=== PATIENT | female | born 1955 | race Caucasian/White ===

== ENCOUNTER 2016-11-20 13:06 | Inpatient (IN) | payer OTHER, MEDICARE ==
--- NOTE | ~2016-11-20 | CN ---
Consultation Report [facility] [address] [place]. [address] NAME: NUHA MORENO : 57 STATUS : ADM IN PAT#: [id number] AGE: 61 ADM/REG DATE : 11/20/16 MR#: [id number] REPORT SERV DATE: 11/23/16 DICTATED BY: CONSUELO BOWLES DATE: 11/21/16 REPORT STATUS : Draft TRANSCRIBED BY: GINGER DATE: 11/21/16 INPATIENT CONSULTATION DATE OF CONSULTATION: 11/21/2016 HISTORY OF PRESENT ILLNESS: Nuha Moreno is a 61-year-old well known to the office of [place] INFRASTRUCTURE TECHNICIAN/Oncology with a five years history of surgical stage IIIC (T3b, N1, M0), poorly differentiated endometrioid adenocarcinoma. She has a history of breast cancer and she is BRCA1 positive. She has known upper abdominal recurrent disease and was treated with a biliary stent approximately one year ago for increasing liver functions and bilirubin. She has done quite well with that. She presented to the [facility] Emergency Department with a complaint of coke-colored urine, mihaela-colored stools, and without other complaints suspicious for advanced disease. She has no bloating, fullness, early satiety, nausea, vomiting, bladder, or bowel changes. She was last evaluated in the office on 09/17/2016 for her CA-125 was 7.0, and she was without evidence of recurrent disease. PHYSICAL EXAMINATION: ABDOMEN: Her physical examination is noteworthy for mild jaundice. Her abdomen is soft, nontender. She has normoactive bowel sounds. There is no hepatosplenomegaly. No ascites, masses, or hernias. INFRASTRUCTURE TECHNICIAN: Deferred. ASSESSMENT: My assessment is that she either has obstructed or clogged stent versus progression of disease with increased stent compression. RECOMMENDATION: GI consultation has already been accomplished for possible stent replacement. If stent is simply clogged and her CA-125 is negative, we will continue to observe and hold additional therapy for recurrent disease. However, if she has progressive disease based on stent compression and/or increasing CA-125, she is an excellent candidate for a PARP inhibitor (rucaparib 600 mg p.o. b.i.d.) This has been discussed at length with Nuha and her Gasper. They understand this and are comfortable with this recommendation. SOREN/MODL Consuelo Bowles M.D. / [id number] CC: Briseida Real
--- NOTE | ~2016-11-20 | EGD ---
EGD REPORT [facility] [address] [address] NAME: NUHA MORENO : 57 STATUS : ADM IN PAT#: [id number] AGE: 61 ADM/REG DATE : 11/20/16 MR#: [id number] REPORT SERV DATE: 11/23/16 DICTATED BY: CINDY FLOWERS DATE: 11/23/16 REPORT STATUS : Draft TRANSCRIBED BY: [facility] DATE: 11/23/16 Endoscopy Center Patient Name: Nuha Moreno Date of : 1955 Attending MD: CINDY FLOWERS, Procedure Date No Time: 11/23/2016 Procedure: ERCP Indications: Elevated aspartate transaminase (AST), Elevated alanine transaminase (ALT), Elevated bilirubin Referring MD: CONSUELO Austin Medicines: General Anesthesia Complications: No immediate complications. Estimated blood loss: None Procedure: Pre-Anesthesia Assessment: - ASA Grade Assessment: IV - A patient with severe systemic disease that is a constant threat to life. After obtaining informed consent, the scope was passed under direct vision. Throughout the procedure, the patient's blood pressure, pulse, and oxygen saturations were monitored continuously. The Duodenoscope was introduced through the mouth, and advanced to the duodenum and used for direct visualization of the bile duct. The ERCP was accomplished without difficulty. The patient tolerated the procedure well. Findings: One stent originating in the biliary tree was emerging from the major papilla. The stent was migrated distally and touching the opposite wall. One stent was removed from the biliary tree using a rat-toothed forceps. The was a gaping orifice. The bile duct was cannulated with the 12 mm balloon. Contrast was injected. I personally interpreted the bile duct images. The lower third of the main bile duct was completely obstructed. The duct only filled about 1 cm. No contrast passed proximally and despite multiple attempts the duct could not be canluted with a wire using either the balloon or the sphincterotome. Impression: - One migrated distally and touching the opposite wall. stent from the biliary tree was seen in the major papilla. - One stent was removed from the biliary tree. - A biliary tract obstruction was found in the lower third of the main duct. Recommendation: - PTC tomorrow. - Return to previous diet. - Continue present medications. EGD REPORT [address] [address] NAME: NUHA MORENO : 57 STATUS : ADM IN [facility]#: [id number] AGE: 61 ADM/REG DATE : 11/20/16 MR#: [id number] REPORT SERV DATE: 11/23/16 DICTATED BY: CINDY FLOWERS DATE: 11/23/16 REPORT STATUS : Draft TRANSCRIBED BY: [employer] DATE: 11/23/16 Procedure Code(s): --- Professional --- 86564, Endoscopic retrograde cholangiopancreatography (ERCP); with removal of foreign body(s) or stent(s) from biliary/pancreatic duct(s) Diagnosis Code(s): --- Professional --- Z96.89, Presence of other specified functional implants Z46.59, Encounter for fitting and adjustment of other gastrointestinal appliance and device K83.1, Obstruction of bile duct R74.0, Nonspecific elevation of levels of transaminase and lactic acid dehydrogenase [LDH] E80.7, Disorder of bilirubin metabolism, unspecified CPT copyright 2013 [employer]. All rights reserved. The codes documented in this report are preliminary and upon lapel padder review may be revised to meet current compliance requirements. CINDY FLOWERS, 11/23/2016 12:45 PM Number of Addenda: 0 Note Initiated On: 11/23/2016 11:52 AM Scope Withdrawal Time 0 hours 0 minutes 0 seconds [id number] [place] [address]
--- NOTE | ~2016-11-20 | DS ---
Discharge Summary [facility] [address] [place]. [address] NAME: KAUR NICK : 57 STATUS : DIS IN PAT#: [id number] AGE: 61 ADM/REG DATE : 11/20/16 MR#: [id number] REPORT SERV DATE: 01/11/17 DICTATED BY: NORI HERNANDEZ II DATE: 01/10/17 REPORT STATUS : Draft TRANSCRIBED BY: MODL DATE: 01/10/17 ADMISSION DATE: 11/20/2016 DISCHARGE DATE: 11/26/2016 DISCHARGE DIAGNOSES: 1. Elevated liver function tests secondary to bile duct obstruction. 2. Metastatic adenocarcinoma. 3. Chronic kidney disease, stage 3. 4. Anemia. CONSULTS: 1. Dr. Holloway with GI. 2. Dr. Dominique with GI. 3. Dr. Camupzano with [facility]. PROCEDURES: ERCP and PCT with internal/external biliary drain placement. BRIEF HISTORY OF PRESENT ILLNESS: The patient is a 61-year-old female with a history of metastatic adenocarcinoma on BRCA-1, who presented to [facility] due to recurrent biliary obstruction. For details of history and physical examination, please see Dr. Villeda's note from 11/20/2016. HOSPITAL COURSE: On admission, the patient had a CT scan, which was actually fairly unremarkable. Her T-bili on admission was 6.6 with mildly elevated LFTs, ALT 135, and AST 166. She was initially started on Zosyn, there was a concern for possible cholangitis, and Dr. Dominique was consulted who recommended ERCP. Dr. Holloway performed the ERCP and found the prior biliary stent was protruding from the ampulla and abutting the adjacent wall of the duodenum causing functional obstruction. The stent was removed. The patient subsequently underwent PTC biliary drain with internal and external drain placement. Subsequently, her T bili began to trend down, and at time of discharge was 2.5 and had noted normalization of her liver enzymes. Her pain was also improved, and she was able to be discharged. DISCHARGE MEDICATIONS: 1. Tylenol 500 mg p.o. q.6 hours p.r.n. 2. Benadryl p.r.n. 3. Flonase p.r.n. 4. Neurontin 100 mg p.o. daily. 5. Neurontin 200 mg p.o. at bedtime. 6. Hydrochlorothiazide 12.5 mg p.o. daily. 7. Atarax 25 mg p.o. daily p.r.n. itching. 8. Synthroid 125 mcg p.o. daily. 9. Toprol-XL 25 mg p.o. daily. 10.Prilosec 20 mg p.o. daily. 11.Percocet 5/325 mg p.o. daily p.r.n. pain. 12.Requip 1 mg p.o. daily. 13.Requip 2 mg p.o. at bedtime. Discharge Summary [place] [address] [place]. [address] NAME: KAUR NICK : 57 STATUS : DIS IN PAT#: [id number] AGE: 61 ADM/REG DATE : 11/20/16 MR#: [id number] REPORT SERV DATE: 01/11/17 DICTATED BY: NORI HERNANDEZ II DATE: 01/10/17 REPORT STATUS : Draft TRANSCRIBED BY: GINGER DATE: 01/10/17 14.Zoloft 100 mg p.o. at bedtime. 15.Aldactone 50 mg p.o. daily. 16.Vitamin E 400 units p.o. daily. DISCHARGE INSTRUCTIONS: The patient will follow with Dr. Frank in two to three weeks. SHERINE/GINGER Nori Hernandez II, MD / [id number] CC: MD DENNISE Pleitez II
--- NOTE | ~2016-11-20 | CN ---
Consultation Report [address] [place]. [address] NAME: KAUR NICK : 57 STATUS : ADM IN [facility]#: [id number] AGE: 61 ADM/REG DATE : 11/20/16 MR#: [id number] REPORT SERV DATE: 11/21/16 DICTATED BY: FADY DOMINIQUE DATE: 11/21/16 REPORT STATUS : Draft TRANSCRIBED BY: MODL DATE: 11/21/16 GI CONSULT DATE OF CONSULTATION: 11/21/2016 Regarding elevated liver tests. HISTORY OF PRESENT ILLNESS: This is a 61-year-old woman with a history of metastatic adenocarcinoma and BRCA1, now presenting with epigastric pain, mihaela colored stools and dark urine. She has been feeling ill for the past few days and did measure her temperature up to 102 Fahrenheit. She has had intermittent epigastric pain for the past one year, which has been worse recently. Stools have been normal, although mihaela colored. She has had dark urine as stated above. She has had no vomiting, GERD, or dysphagia. She had covered metal stent placed in her common bile duct in 10/[address] Holloway. This was thought to be the etiology of her obstruction was thought to be metastatic ovarian cancer. MEDICAL HISTORY: 1. Remarkable for breast cancer 2004, status post surgery including bilateral mastectomy, radiation and chemotherapy. 2. Ovarian cancer, status post surgery and chemotherapy. 3. BRCA1 mutation. 4. Peripancreatic lymph nodes, biopsied and found to be adenocarcinoma. 5. Common bile duct covered metal stent placement, Dr. Holloway, 2016. 6. Neuropathy. 7. Bilateral ureteral stents. 8. Urothelial dysplasia and carcinoma. 9. GERD. 10.Hypothyroidism, hypertension, pancreatitis. 11.Ovarian surgery for cancer as well as hysterectomy, bilateral mastectomy, and multiple orthopedic procedures. ALLERGIES: ADHESIVE TAPE. MEDICATIONS: Tylenol, Benadryl, Flonase, Neurontin, hydrochlorothiazide, Atarax, Advil, Synthroid, Toprol, Aleve, Prilosec, Percocet, Requip, Zoloft, Aldactone, vitamin E. FAMILY HISTORY: Positive for breast cancer. SOCIAL HISTORY: She does not use alcohol or tobacco significantly. REVIEW OF SYSTEMS: A complete review of systems was obtained and negative except that noted in the history of present illness. Consultation Report [address] [place]. [address] NAME: KAUR NICK : 57 STATUS : ADM IN [facility]#: [id number] AGE: 61 ADM/REG DATE : 11/20/16 MR#: [id number] REPORT SERV DATE: 11/21/16 DICTATED BY: FADY DOMINIQUE DATE: 11/21/16 REPORT STATUS : Draft TRANSCRIBED BY: MODL DATE: 11/21/16 PHYSICAL EXAMINATION: VITAL SIGNS: She is currently afebrile. Temperature is 97.5, pulse 69, respirations 16, blood pressure 105/61. HEENT: Sclerae are icteric. NECK: Supple without lymphadenopathy. Pharynx is pink without exudate. LUNGS: Clear to auscultation bilaterally. HEART: Regular rate and rhythm. S1, S2 are heard without rubs or gallops. ABDOMEN: Normal bowel sounds. Belly is soft and nondistended. There is mild epigastric tenderness without rebound or guarding. No hepatosplenomegaly is detected. EXTREMITIES: No pedal edema or rash. NEUROLOGIC: Alert and oriented without focal deficit. Muscle exam is nontender. LABORATORY DATA: WBC 7.0, hematocrit 32, platelets 157, MCV 87.7. INR 1.3. Procalcitonin high at 4.85. BUN is 28, creatinine 1.55. Bilirubin 4.8 down from 6.6, alkaline phosphatase 239 down from 264, ALT 85 down from 135, AST 35 down from 66, amylase and lipase normal. CT reviewed is negative except for biliary stent noted. IMPRESSION: 1. Biliary obstructions, suspect cholangitis. 2. History of malignancy, as above. 3. Common bile duct covered metal stent placed in 2016, question obstruction. RECOMMENDATIONS: 1. Continue broad-spectrum antibiotics. 2. Follow liver panel and plan for ERCP to follow with Dr. Holloway. CC/JHONATANL Fady Dominique M.D. / [id number] CC: MD Chelle Trimble Susan Gaile Gregory Olds, MD
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
[~2016-11-20 13:06] MED LIST: ADVIL PO; AMOXIL500 MG PO; COMP10B PO; DEX4 PO; DSS PO; HCTZ12.5 PO; HYDROCHLOROT12.5 MG PO; LEVOTHYROXIN100 MCG PO; LEVOTHYROXIN88 MCG PO; LIQUID TEARS OPH; LORTAB; LORTAB10 PO; NEUR100 PO; NORCO1 TA1 PO; PRILO PO; PRILOSEC40 MG PO; REQUIP1 PO; REQUIP2 PO; SPIRO50 PO; TEARS NATURA OPH; TOPXL25 PO; VIST50 PO; VITE PO; ZOL50 PO; [UNRECOGNIZED DRUG - OTHER]
[2016-11-20 13:46] LABS: BASOPHILS 0.1 %; BASOPHILS ABSOLUTE 0.01 10/3/uL (0.0-0.16); EOSINOPHILS 0.8 %; EOSINOPHILS ABSOLUTE 0.08 10/3/uL (0.0-0.53); IMMATURE GRANULOCYTES 0.2 %; MEAN CORPUSCULAR HEMOGLOB 29.7 pg (26.0-34.0); MEAN CORPUSCULAR VOLUME 87.3 fL (80-100); MEAN PLATELET VOLUME 9.9 fL (9.2-13.0); MONOCYTES 7.3 %; MONOCYTES ABSOLUTE 0.73 10/3/uL (0.21-1.20); NEUTROPHILS 79.6 %; NEUTROPHILS ABSOLUTE 7.94 10/3/uL (2.02-8.40); RED CELL COUNT 4.01 10/6/uL (4.0-5.6)
[2016-11-20 13:47] LABS: HEMOGLOBIN 11.9 g/dL (12.0-16.0); IMMATURE GRANULOCYTES ABSOLUTE 0.02 10/3/uL (0.0-0.11); MANUAL DIFF NO %; PLATELET COUNT 169 10/3/uL (150-400)
[2016-11-20 14:02] LABS: CALCIUM, SERUM 8.7 MG/DL (8.5-10.4); CHLORIDE, SERUM 99 MMOL/L (96-112); CO2 (CARBON DIOXIDE) 26 MMOL/L (24-34); GLUCOSE, SERUM 112 MG/DL (60-99); POTASSIUM, SERUM 3.6 MMOL/L (3.5-5.3); SGOT(AST) 66 U/L (5-40); SGPT(ALT) 135 U/L (5-65); SODIUM, SERUM 136 MMOL/L (135-148); TOTAL PROTEIN 7.1 G/DL (6.0-8.5)
[2016-11-20 14:03] LABS: A/G RATIO 0.7 (0.7-1.9); ALKALINE PHOSPHATASE 264 U/L (45-117); BUN (BLOOD UREA NITROGEN) 35 MG/DL (6-23); CREATININE 1.86 MG/DL (0.55-1.02); GFR AFRICAN AMERICAN 33 ML/MIN (>=60); GFR NON AFRICAN AMERICAN 29 ML/MIN (>=60); GLOBULIN 4.1 G/DL (2.5-4.1); TOTAL BILIRUBIN 6.6 MG/DL (0-1.2)
[2016-11-20 14:07] LABS: ASCORBIC ACID (UR NOT ORDER) NEG (NEG); BAND NEUTROPHILS 8 %; BILIRUBIN, URINE SMALL (NEG); ER DIFF TAT 0 Hrs 27 Mins; ER URINALYSIS TAT 0 Hrs 27 Mins; KETONE, URINE NEGATIVE (NEG); LEUKOCYTE ESTERASE(NOT OR LARGE (NEG); LYMPHOCYTES 11 %; MONOCYTES 8 %; NITRITE (URINE) NEG (NEG); PLATELET ESTIMATE ADQ (ADEQUATE); RBC MORPHOLOGY NORM (NORMAL); SEGMENTED NEUTROPHIL (0) 73 %; TOTAL NUCLEATED CELLS 100; WBC (NOT ORDERED) (RFLEX) 16 (0-5)
[2016-11-20] MEDS ORDERED: SYN125 PO (17:58)
[2016-11-20] MEDS ORDERED: REQUIP2 PO (17:59)
[2016-11-20] MEDS ORDERED: REQUIP1 PO (17:59)
[2016-11-20] MEDS ORDERED: ZOL50 PO (17:59)
[2016-11-20] MEDS ORDERED: HYDROCHLOROT12.5 MG PO (17:59)
[2016-11-20 18:00] LABS: TROPONIN I <0.02 NG/ML (<0.05)
[2016-11-20] MEDS ORDERED: NEUR100 PO ×2 (18:00)
[2016-11-20] MEDS ORDERED: FLONASE NAS (18:00)
[2016-11-20] MEDS ORDERED: ADVIL PO (18:00)
[2016-11-20] MEDS ORDERED: SPIRO50 PO (18:01)
[2016-11-20] MEDS ORDERED: PRILOSEC OTC20 MG PO (18:01)
[2016-11-20] MEDS ORDERED: VITE PO (18:01)
[2016-11-20] MEDS ORDERED: TOPXL25 PO (18:01)
[2016-11-20] MEDS ORDERED: AT25 PO (18:02)
[2016-11-20] MEDS ORDERED: BEN25 PO (18:02)
[2016-11-20] MEDS ORDERED: ALEVE220 MG PO (18:02)
[2016-11-20] MEDS ORDERED: ACET500CAP PO (18:02)
[2016-11-20] MEDS ORDERED: PCET PO (18:03)
[2016-11-21 07:34] LABS: INTERNATIONAL NORMAL RATI 1.3 UNITS (-); PARTIAL THROMBO TIME 36.9 SEC (22.5-37.2)
[2016-11-21 07:41] LABS: BASOPHILS 0.1 %; BASOPHILS ABSOLUTE 0.01 10/3/uL (0.0-0.16); EOSINOPHILS 3.3 %; EOSINOPHILS ABSOLUTE 0.23 10/3/uL (0.0-0.53); HEMOGLOBIN 10.8 g/dL (12.0-16.0); IMMATURE GRANULOCYTES 0.4 %; IMMATURE GRANULOCYTES ABSOLUTE 0.03 10/3/uL (0.0-0.11); LYMPHOCYTES 19.2 %; LYMPHOCYTES ABSOLUTE 1.35 10/3/uL (0.67-4.30); MEAN CORPUS HGB CONC 33.8 g/dL (32.0-36.0); MEAN CORPUSCULAR HEMOGLOB 29.6 pg (26.0-34.0); MEAN CORPUSCULAR VOLUME 87.7 fL (80-100); MEAN PLATELET VOLUME 10.2 fL (9.2-13.0); MONOCYTES 9.4 %; MONOCYTES ABSOLUTE 0.66 10/3/uL (0.21-1.20); NEUTROPHILS 67.6 %; NEUTROPHILS ABSOLUTE 4.74 10/3/uL (2.02-8.40); PLATELET COUNT 157 10/3/uL (150-400); PROTIME (NOT ORD) 16.3 SEC (12.0-14.5); RBC DISTRIBUTION WIDTH 14.3 % (12.0-16.0); RED CELL COUNT 3.65 10/6/uL (4.0-5.6)
[2016-11-21 07:43] LABS: MANUAL DIFF NO %
[2016-11-21 07:53] LABS: CALCIUM, SERUM 8.7 MG/DL (8.5-10.4); CHLORIDE, SERUM 108 MMOL/L (96-112); CO2 (CARBON DIOXIDE) 23 MMOL/L (24-34); CREATININE 1.55 MG/DL (0.55-1.02); GFR AFRICAN AMERICAN 42 ML/MIN (>=60); GFR NON AFRICAN AMERICAN 36 ML/MIN (>=60); GLUCOSE, SERUM 90 MG/DL (60-99); POTASSIUM, SERUM 3.7 MMOL/L (3.5-5.3); SGOT(AST) 35 U/L (5-40); SGPT(ALT) 85 U/L (5-65); SODIUM, SERUM 142 MMOL/L (135-148); TOTAL PROTEIN 6.2 G/DL (6.0-8.5); ULTRASENSITIVE TSH 0.505 MCIU/ML (0.358-3.740)
[2016-11-21 07:55] LABS: A/G RATIO 0.6 (0.7-1.9); ALBUMIN 2.3 G/DL (3.5-5.0); ALKALINE PHOSPHATASE 239 U/L (45-117); BUN (BLOOD UREA NITROGEN) 28 MG/DL (6-23); GLOBULIN 3.9 G/DL (2.5-4.1); TOTAL BILIRUBIN 4.8 MG/DL (0-1.2)
[2016-11-21 08:11] LABS: PROCALCITONIN 4.85 ng/mL (<0.5)
[2016-11-22 06:28] LABS: BASOPHILS 0.4 %; BASOPHILS ABSOLUTE 0.02 10/3/uL (0.0-0.16); EOSINOPHILS 4.7 %; EOSINOPHILS ABSOLUTE 0.22 10/3/uL (0.0-0.53); HEMATOCRIT 29.6 % (36.0-48.0); HEMOGLOBIN 9.7 g/dL (12.0-16.0); LYMPHOCYTES 28.1 %; LYMPHOCYTES ABSOLUTE 1.32 10/3/uL (0.67-4.30); MEAN CORPUS HGB CONC 32.8 g/dL (32.0-36.0); MEAN CORPUSCULAR HEMOGLOB 29.4 pg (26.0-34.0); MEAN CORPUSCULAR VOLUME 89.7 fL (80-100); MEAN PLATELET VOLUME 10.6 fL (9.2-13.0); MONOCYTES 8.9 %; MONOCYTES ABSOLUTE 0.42 10/3/uL (0.21-1.20); NEUTROPHILS 57.9 %; NEUTROPHILS ABSOLUTE 2.72 10/3/uL (2.02-8.40); PLATELET COUNT 152 10/3/uL (150-400); RBC DISTRIBUTION WIDTH 14.8 % (12.0-16.0); WHITE BLOOD CELLS 4.7 10/3/uL (4.5-10.5)
[2016-11-22 06:30] LABS: MANUAL DIFF NO %
[2016-11-22 06:39] LABS: A/G RATIO 0.6 (0.7-1.9); ALBUMIN 2.1 G/DL (3.5-5.0); ALKALINE PHOSPHATASE 299 U/L (45-117); BUN (BLOOD UREA NITROGEN) 24 MG/DL (6-23); CALCIUM, SERUM 8.4 MG/DL (8.5-10.4); CHLORIDE, SERUM 110 MMOL/L (96-112); CO2 (CARBON DIOXIDE) 24 MMOL/L (24-34); CREATININE 1.58 MG/DL (0.55-1.02); GFR AFRICAN AMERICAN 41 ML/MIN (>=60); GFR NON AFRICAN AMERICAN 35 ML/MIN (>=60); GLOBULIN 3.7 G/DL (2.5-4.1); GLUCOSE, SERUM 111 MG/DL (60-99); POTASSIUM, SERUM 3.7 MMOL/L (3.5-5.3); SGOT(AST) 30 U/L (5-40); SGPT(ALT) 69 U/L (5-65); SODIUM, SERUM 145 MMOL/L (135-148); TOTAL BILIRUBIN 2.4 MG/DL (0-1.2); TOTAL PROTEIN 5.8 G/DL (6.0-8.5)
[2016-11-23 08:19] LABS: BASOPHILS 0.6 %; BASOPHILS ABSOLUTE 0.03 10/3/uL (0.0-0.16); EOSINOPHILS 4.1 %; HEMATOCRIT 32.1 % (36.0-48.0); HEMOGLOBIN 10.7 g/dL (12.0-16.0); IMMATURE GRANULOCYTES 0.2 %; IMMATURE GRANULOCYTES ABSOLUTE 0.01 10/3/uL (0.0-0.11); LYMPHOCYTES 36.3 %; LYMPHOCYTES ABSOLUTE 1.75 10/3/uL (0.67-4.30); MEAN CORPUS HGB CONC 33.3 g/dL (32.0-36.0); MEAN CORPUSCULAR HEMOGLOB 29.9 pg (26.0-34.0); MEAN CORPUSCULAR VOLUME 89.7 fL (80-100); MEAN PLATELET VOLUME 10.2 fL (9.2-13.0); MONOCYTES 8.5 %; MONOCYTES ABSOLUTE 0.41 10/3/uL (0.21-1.20); NEUTROPHILS 50.3 %; NEUTROPHILS ABSOLUTE 2.42 10/3/uL (2.02-8.40); PLATELET COUNT 164 10/3/uL (150-400); RBC DISTRIBUTION WIDTH 14.8 % (12.0-16.0); RED CELL COUNT 3.58 10/6/uL (4.0-5.6); WHITE BLOOD CELLS 4.8 10/3/uL (4.5-10.5)
[2016-11-23 08:21] LABS: MANUAL DIFF NO %
[2016-11-23 08:40] LABS: A/G RATIO 0.5 (0.7-1.9); ALBUMIN 2.2 G/DL (3.5-5.0); BUN (BLOOD UREA NITROGEN) 26 MG/DL (6-23); CALCIUM, SERUM 8.8 MG/DL (8.5-10.4); CHLORIDE, SERUM 110 MMOL/L (96-112); CO2 (CARBON DIOXIDE) 22 MMOL/L (24-34); GFR AFRICAN AMERICAN 40 ML/MIN (>=60); GFR NON AFRICAN AMERICAN 35 ML/MIN (>=60); GLOBULIN 4.1 G/DL (2.5-4.1); SGOT(AST) 37 U/L (5-40); SGPT(ALT) 67 U/L (5-65); SODIUM, SERUM 144 MMOL/L (135-148); TOTAL BILIRUBIN 2.2 MG/DL (0-1.2); TOTAL PROTEIN 6.3 G/DL (6.0-8.5)
[2016-11-23 08:42] LABS: ALKALINE PHOSPHATASE 379 U/L (45-117); GLUCOSE, SERUM 87 MG/DL (60-99)
[2016-11-24 06:11] LABS: BASOPHILS 0.3 %; BASOPHILS ABSOLUTE 0.02 10/3/uL (0.0-0.16); EOSINOPHILS 2.8 %; EOSINOPHILS ABSOLUTE 0.19 10/3/uL (0.0-0.53); HEMATOCRIT 30.8 % (36.0-48.0); HEMOGLOBIN 10.3 g/dL (12.0-16.0); IMMATURE GRANULOCYTES 0.3 %; IMMATURE GRANULOCYTES ABSOLUTE 0.02 10/3/uL (0.0-0.11); LYMPHOCYTES ABSOLUTE 1.83 10/3/uL (0.67-4.30); MEAN CORPUS HGB CONC 33.4 g/dL (32.0-36.0); MEAN CORPUSCULAR HEMOGLOB 29.7 pg (26.0-34.0); MEAN CORPUSCULAR VOLUME 88.8 fL (80-100); MEAN PLATELET VOLUME 10.4 fL (9.2-13.0); MONOCYTES 6.5 %; MONOCYTES ABSOLUTE 0.44 10/3/uL (0.21-1.20); NEUTROPHILS 63.1 %; NEUTROPHILS ABSOLUTE 4.27 10/3/uL (2.02-8.40); PLATELET COUNT 191 10/3/uL (150-400); RED CELL COUNT 3.47 10/6/uL (4.0-5.6)
[2016-11-24 06:12] LABS: MANUAL DIFF NO %; WHITE BLOOD CELLS 6.8 10/3/uL (4.5-10.5)
[2016-11-24 06:16] LABS: PARTIAL THROMBO TIME 31.5 SEC (22.5-37.2); PROTIME (NOT ORD) 13.5 SEC (12.0-14.5)
[2016-11-24 06:24] LABS: BUN (BLOOD UREA NITROGEN) 24 MG/DL (6-23); CALCIUM, SERUM 8.9 MG/DL (8.5-10.4); CHLORIDE, SERUM 107 MMOL/L (96-112); CO2 (CARBON DIOXIDE) 25 MMOL/L (24-34); CREATININE 1.63 MG/DL (0.55-1.02); GFR AFRICAN AMERICAN 39 ML/MIN (>=60); GFR NON AFRICAN AMERICAN 34 ML/MIN (>=60); GLUCOSE, SERUM 87 MG/DL (60-99); POTASSIUM, SERUM 4.1 MMOL/L (3.5-5.3); SODIUM, SERUM 141 MMOL/L (135-148)
[2016-11-25 05:48] LABS: BASOPHILS 0.4 %; BASOPHILS ABSOLUTE 0.03 10/3/uL (0.0-0.16); EOSINOPHILS 3.2 %; EOSINOPHILS ABSOLUTE 0.25 10/3/uL (0.0-0.53); HEMATOCRIT 31.5 % (36.0-48.0); HEMOGLOBIN 10.1 g/dL (12.0-16.0); IMMATURE GRANULOCYTES 0.5 %; IMMATURE GRANULOCYTES ABSOLUTE 0.04 10/3/uL (0.0-0.11); LYMPHOCYTES 23.3 %; LYMPHOCYTES ABSOLUTE 1.83 10/3/uL (0.67-4.30); MANUAL DIFF NO %; MEAN CORPUS HGB CONC 32.1 g/dL (32.0-36.0); MEAN CORPUSCULAR HEMOGLOB 28.9 pg (26.0-34.0); MEAN CORPUSCULAR VOLUME 90.3 fL (80-100); MEAN PLATELET VOLUME 10.5 fL (9.2-13.0); MONOCYTES 5.2 %; MONOCYTES ABSOLUTE 0.41 10/3/uL (0.21-1.20); NEUTROPHILS 67.4 %; PLATELET COUNT 214 10/3/uL (150-400); RED CELL COUNT 3.49 10/6/uL (4.0-5.6); WHITE BLOOD CELLS 7.9 10/3/uL (4.5-10.5)
[2016-11-25 06:03] LABS: A/G RATIO 0.6 (0.7-1.9); ALBUMIN 2.5 G/DL (3.5-5.0); BUN (BLOOD UREA NITROGEN) 21 MG/DL (6-23); CHLORIDE, SERUM 103 MMOL/L (96-112); CO2 (CARBON DIOXIDE) 27 MMOL/L (24-34); CREATININE 1.78 MG/DL (0.55-1.02); GFR AFRICAN AMERICAN 35 ML/MIN (>=60); GFR NON AFRICAN AMERICAN 30 ML/MIN (>=60); GLOBULIN 4.2 G/DL (2.5-4.1); GLUCOSE, SERUM 91 MG/DL (60-99); POTASSIUM, SERUM 3.8 MMOL/L (3.5-5.3); SGOT(AST) 88 U/L (5-40); SGPT(ALT) 118 U/L (5-65); SODIUM, SERUM 140 MMOL/L (135-148); TOTAL PROTEIN 6.7 G/DL (6.0-8.5)
[2016-11-25 06:06] LABS: ALKALINE PHOSPHATASE 528 U/L (45-117); TOTAL BILIRUBIN 4.1 MG/DL (0-1.2)
[2016-11-26 05:32] LABS: BASOPHILS 0.3 %; BASOPHILS ABSOLUTE 0.03 10/3/uL (0.0-0.16); EOSINOPHILS 2.9 %; EOSINOPHILS ABSOLUTE 0.26 10/3/uL (0.0-0.53); HEMATOCRIT 29.4 % (36.0-48.0); HEMOGLOBIN 9.6 g/dL (12.0-16.0); IMMATURE GRANULOCYTES 0.7 %; IMMATURE GRANULOCYTES ABSOLUTE 0.06 10/3/uL (0.0-0.11); LYMPHOCYTES 24.6 %; LYMPHOCYTES ABSOLUTE 2.18 10/3/uL (0.67-4.30); MEAN CORPUS HGB CONC 32.7 g/dL (32.0-36.0); MEAN CORPUSCULAR HEMOGLOB 29.4 pg (26.0-34.0); MEAN CORPUSCULAR VOLUME 89.9 fL (80-100); MEAN PLATELET VOLUME 10.5 fL (9.2-13.0); MONOCYTES 8.6 %; MONOCYTES ABSOLUTE 0.76 10/3/uL (0.21-1.20); NEUTROPHILS 62.9 %; NEUTROPHILS ABSOLUTE 5.57 10/3/uL (2.02-8.40); PLATELET COUNT 236 10/3/uL (150-400); RBC DISTRIBUTION WIDTH 15.1 % (12.0-16.0); RED CELL COUNT 3.27 10/6/uL (4.0-5.6); WHITE BLOOD CELLS 8.9 10/3/uL (4.5-10.5)
[2016-11-26 05:34] LABS: MANUAL DIFF NO %
[2016-11-26 05:44] LABS: A/G RATIO 0.5 (0.7-1.9); ALBUMIN 2.4 G/DL (3.5-5.0); BUN (BLOOD UREA NITROGEN) 18 MG/DL (6-23); CALCIUM, SERUM 8.3 MG/DL (8.5-10.4); CHLORIDE, SERUM 105 MMOL/L (96-112); CO2 (CARBON DIOXIDE) 26 MMOL/L (24-34); CREATININE 1.77 MG/DL (0.55-1.02); GFR AFRICAN AMERICAN 36 ML/MIN (>=60); GFR NON AFRICAN AMERICAN 31 ML/MIN (>=60); GLOBULIN 4.4 G/DL (2.5-4.1); GLUCOSE, SERUM 100 MG/DL (60-99); POTASSIUM, SERUM 3.5 MMOL/L (3.5-5.3); SGOT(AST) 43 U/L (5-40); SGPT(ALT) 82 U/L (5-65); SODIUM, SERUM 141 MMOL/L (135-148); TOTAL PROTEIN 6.8 G/DL (6.0-8.5)
[2016-11-26 05:50] LABS: ALKALINE PHOSPHATASE 454 U/L (45-117); TOTAL BILIRUBIN 2.5 MG/DL (0-1.2)
== END 2016-11-26 15:17 | disposition home or self-care (01) | DRG 374 ==
LOC: ER 13:06 → 5SO 18:27
PROVIDERS: Emergency Medicine; Hospitalist; Internal Medicine; Internal Medicine Gastroenterology
PROC: 0FPB8DZ Removal of Intraluminal Device from Hepatobiliary Duct, Via Natural or Artificial Opening Endoscopic (ICD-10-PCS; principal; 2016-11-23 11:56)
PROC: BF101ZZ Fluoroscopy of Bile Ducts using Low Osmolar Contrast (ICD-10-PCS; 2016-11-24)
DX: C78.89 Secondary malignant neoplasm of other digestive organs (principal); K83.1 Obstruction of bile duct; N17.9 Acute kidney failure, unspecified; N18.3 Chronic kidney disease, stage 3 (moderate); N39.0 Urinary tract infection, site not specified; I12.9 Hypertensive chronic kidney disease with stage 1 through stage 4 chronic kidney disease, or unspecified chronic kidney disease; D64.9 Anemia, unspecified; K21.9 Gastro-esophageal reflux disease without esophagitis; E03.9 Hypothyroidism, unspecified; Z85.07 Personal history of malignant neoplasm of pancreas; Z85.3 Personal history of malignant neoplasm of breast; Z85.43 Personal history of malignant neoplasm of ovary; Z92.3 Personal history of irradiation; Z92.21 Personal history of antineoplastic chemotherapy; Z90.710 Acquired absence of both cervix and uterus; Z98.890 Other specified postprocedural states; Z79.899 Other long term (current) drug therapy
CPT/HCPCS: 47534; 74176; 74330; 80048; 80053; 81001; 82150; 83690; 83735; 84145; 84443; 84484; 85025; 85610; 85730; 86304; 87086; 93005; 99285; A9270-GY; C1729; C1769; C1894; J1170; J2250; J2405; J2543; J2710; J3010; Q9967

== ENCOUNTER 2016-11-28 09:40 | Observation (INO) | payer OTHER ==
--- NOTE | ~2016-11-28 | DS ---
Discharge Summary [facility] [address] [place]. [address] NAME: KAUR NICK : 57 STATUS : DIS Elicia PAT#: [id number] AGE: 61 ADM/REG DATE : 11/28/16 MR#: [id number] REPORT SERV DATE: 11/30/16 DICTATED BY: NORI HERNANDEZ II DATE: 11/29/16 REPORT STATUS : Draft TRANSCRIBED BY: MODL DATE: 11/29/16 ADMISSION DATE: 11/28/2016 DISCHARGE DATE: 11/29/2016 DISCHARGE DIAGNOSES: 1. Acute right upper quadrant pain after recent biliary tube placement, status post biliary tube exchange. 2. Leukocytosis. 3. Possible cholangitis. 4. Metastatic ovarian cancer. 5. Recent biliary obstruction, status post percutaneous biliary drain with internal and external catheters. 6. History of bilateral ureteral stents. 7. History of neuropathy. 8. History of urothelial dysplasia and carcinoma. 9. History of hypertension. 10.History of hypothyroidism. 11.History of breast cancer. CONSULTS: Interventional Radiology. BRIEF HISTORY OF PRESENT ILLNESS: The patient is a 61-year-old female with the above history who presented to the [facility] due to severe right upper quadrant pain, status post recent percutaneous drain. For detailed history and physical examination, please see my note from 11/28/2016. HOSPITAL COURSE: After admission, the patient was taken to Interventional Radiology, where her biliary drain was exchanged for a 12-[place]er from a 10-[place] Islander. CT of the abdomen and pelvis on admission had shown a small amount of pelvic fluid, though it was not present on previous exam, as well as a small right pleural effusion with minimal atelectasis in the right lung base. Biliary drain in satisfactory position according to CT. After the patient's drain placement, she developed a low-grade fever of 100.3. Her white blood cell count also went from 10 on admission to 16.2. Given her pain, drain placement, white count, and low-grade fever, the patient was started on Levaquin. Currently, her white count has come down to 15.6 later in the day. The patient has been in the observation and is otherwise doing quite well. Pain is controlled, her liver enzymes are continuing to improve. Her T bilirubin on admission was 2.2, alkaline phosphatase 471, ALT 77, AST 48. Today after the exchange her T-bilirubin is 1.7, alkaline phosphatase 393, ALT 52, AST 34. Tube seems to be functioning well. We will discharge her with seven days of Levaquin. She has follow with her primary care physician in GI in the next one to two weeks. She can have her labs recheck done. DISCHARGE MEDICATIONS: 1. Gabapentin 100 mg p.o. daily. 2. Neurontin 200 mg p.o. at bedtime. 3. Hydrochlorothiazide 12.5 mg p.o. daily. Discharge Summary [place] [address] [facility] [place]. [address] NAME: KAUR NICK : 57 STATUS : DIS Elicia PAT#: [id number] AGE: 61 ADM/REG DATE : 11/28/16 MR#: [id number] REPORT SERV DATE: 11/30/16 DICTATED BY: NORI HERNANDEZ II DATE: 11/29/16 REPORT STATUS : Draft TRANSCRIBED BY: GINGER DATE: 11/29/16 4. Synthroid 125 mg p.o. daily. 5. Lopressor 25 mg p.o. daily. 6. Prilosec 20 mg p.o. daily. 7. Requip 1 mg p.o. daily. 8. Requip 2 mg p.o. at bedtime. 9. Zoloft 50 mg p.o. at bedtime. 10.Aldactone 50 mg p.o. daily. 11.Vitamin E 400 units p.o. daily. 12.Levaquin 750 mg p.o. q.48 hours times six more days. 13.Flonase two sprays daily p.r.n. 14.Tylenol p.r.n. 15.Benadryl p.r.n. 16.Atarax 25 mg p.o. daily p.r.n. itching. 17.Percocet 5/325 mg p.o. daily p.r.n. pain. DISCHARGE INSTRUCTIONS: The patient will follow with her PCP in GI as previously mentioned. AUGUSTINE Nori Hernandez II, MD / [id number] CC: Briseida Loo,DENNISE ROSEN
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
[2016-11-28 07:49] LABS: BASOPHILS 0.3 %; BASOPHILS ABSOLUTE 0.03 10/3/uL (0.0-0.16); EOSINOPHILS 1.9 %; EOSINOPHILS ABSOLUTE 0.19 10/3/uL (0.0-0.53); ER CBC TAT 0 Hrs 03 Mins; HEMOGLOBIN 10.2 g/dL (12.0-16.0); IMMATURE GRANULOCYTES 0.6 %; IMMATURE GRANULOCYTES ABSOLUTE 0.06 10/3/uL (0.0-0.11); LYMPHOCYTES 16.3 %; LYMPHOCYTES ABSOLUTE 1.63 10/3/uL (0.67-4.30); MEAN CORPUS HGB CONC 32.9 g/dL (32.0-36.0); MEAN CORPUSCULAR HEMOGLOB 29.3 pg (26.0-34.0); MEAN CORPUSCULAR VOLUME 89.1 fL (80-100); MEAN PLATELET VOLUME 9.4 fL (9.2-13.0); MONOCYTES 6.5 %; MONOCYTES ABSOLUTE 0.65 10/3/uL (0.21-1.20); NEUTROPHILS 74.4 %; NEUTROPHILS ABSOLUTE 7.46 10/3/uL (2.02-8.40); PLATELET COUNT 257 10/3/uL (150-400); RBC DISTRIBUTION WIDTH 15.2 % (12.0-16.0); RED CELL COUNT 3.48 10/6/uL (4.0-5.6)
[2016-11-28 07:50] LABS: MANUAL DIFF NO %
[2016-11-28 08:04] LABS: A/G RATIO 0.6 (0.7-1.9); ALBUMIN 2.8 G/DL (3.5-5.0); CALCIUM, SERUM 8.7 MG/DL (8.5-10.4); CHLORIDE, SERUM 100 MMOL/L (96-112); CO2 (CARBON DIOXIDE) 27 MMOL/L (24-34); CREATININE 1.43 MG/DL (0.55-1.02); GFR AFRICAN AMERICAN 46 ML/MIN (>=60); GFR NON AFRICAN AMERICAN 40 ML/MIN (>=60); GLOBULIN 4.8 G/DL (2.5-4.1); GLUCOSE, SERUM 113 MG/DL (60-99); POTASSIUM, SERUM 4.1 MMOL/L (3.5-5.3); SGOT(AST) 48 U/L (5-40); SGPT(ALT) 77 U/L (5-65); SODIUM, SERUM 139 MMOL/L (135-148); TOTAL BILIRUBIN 2.2 MG/DL (0-1.2); TOTAL PROTEIN 7.6 G/DL (6.0-8.5)
[2016-11-28 08:05] LABS: ALKALINE PHOSPHATASE 471 U/L (45-117); BUN (BLOOD UREA NITROGEN) 23 MG/DL (6-23)
[2016-11-28 08:15] LABS: ASCORBIC ACID (UR NOT ORDER) NEG (NEG); BILIRUBIN, URINE NEGATIVE (NEG); ER URINALYSIS TAT 0 Hrs 14 Mins; KETONE, URINE NEGATIVE (NEG); LEUKOCYTE ESTERASE(NOT OR TRACE (NEG); NITRITE (URINE) NEG (NEG); WBC (NOT ORDERED) (RFLEX) 4 (0-5)
[~2016-11-28 09:40] MED LIST changes: +ACET500CAP PO; +ALEVE220 MG PO; +AT25 PO; +BEN25 PO; +FLONASE NAS; +PCET PO; +PRILOSEC OTC20 MG PO; +SYN125 PO
[2016-11-29 05:14] LABS: HEMATOCRIT 30.2 % (36.0-48.0); HEMOGLOBIN 9.8 g/dL (12.0-16.0); MEAN CORPUS HGB CONC 32.5 g/dL (32.0-36.0); MEAN CORPUSCULAR HEMOGLOB 29.4 pg (26.0-34.0); MEAN CORPUSCULAR VOLUME 90.7 fL (80-100); MEAN PLATELET VOLUME 9.8 fL (9.2-13.0); PLATELET COUNT 232 10/3/uL (150-400); RBC DISTRIBUTION WIDTH 15.5 % (12.0-16.0); RED CELL COUNT 3.33 10/6/uL (4.0-5.6)
[2016-11-29 05:18] LABS: MANUAL DIFF YES %; WHITE BLOOD CELLS 16.2 10/3/uL (4.5-10.5)
[2016-11-29 05:28] LABS: A/G RATIO 0.5 (0.7-1.9); ALBUMIN 2.5 G/DL (3.5-5.0); BUN (BLOOD UREA NITROGEN) 25 MG/DL (6-23); CALCIUM, SERUM 8.4 MG/DL (8.5-10.4); CHLORIDE, SERUM 99 MMOL/L (96-112); CO2 (CARBON DIOXIDE) 26 MMOL/L (24-34); CREATININE 1.76 MG/DL (0.55-1.02); GFR AFRICAN AMERICAN 36 ML/MIN (>=60); GFR NON AFRICAN AMERICAN 31 ML/MIN (>=60); GLOBULIN 4.7 G/DL (2.5-4.1); GLUCOSE, SERUM 118 MG/DL (60-99); POTASSIUM, SERUM 4.5 MMOL/L (3.5-5.3); SGOT(AST) 34 U/L (5-40); SGPT(ALT) 62 U/L (5-65); SODIUM, SERUM 136 MMOL/L (135-148); TOTAL PROTEIN 7.2 G/DL (6.0-8.5)
[2016-11-29 05:29] LABS: ALKALINE PHOSPHATASE 393 U/L (45-117); TOTAL BILIRUBIN 1.7 MG/DL (0-1.2)
[2016-11-29 05:56] LABS: LYMPHOCYTES 14 %; LYMPHOCYTES ABSOLUTE (CALC) 2.27 10/3/uL (0.67-4.30); MONOCYTES 4 %; MONOCYTES ABSOLUTE (CALC) 0.65 10/3/uL (0.21-1.20); NEUTROPHILS ABSOLUTE (CALC) 13.28 10/3/uL (2.02-8.40); PLATELET ESTIMATE ADQ (ADEQUATE); RBC MORPHOLOGY NORM (NORMAL); SEGMENTED NEUTROPHIL (0) 82 %; TOTAL NUCLEATED CELLS 100
[2016-11-29 16:07] LABS: BASOPHILS 0.1 %; BASOPHILS ABSOLUTE 0.02 10/3/uL (0.0-0.16); EOSINOPHILS 0.3 %; EOSINOPHILS ABSOLUTE 0.05 10/3/uL (0.0-0.53); HEMOGLOBIN 9.4 g/dL (12.0-16.0); IMMATURE GRANULOCYTES 0.3 %; IMMATURE GRANULOCYTES ABSOLUTE 0.05 10/3/uL (0.0-0.11); LYMPHOCYTES ABSOLUTE 1.55 10/3/uL (0.67-4.30); MEAN CORPUS HGB CONC 32.4 g/dL (32.0-36.0); MEAN CORPUSCULAR HEMOGLOB 29.2 pg (26.0-34.0); MEAN CORPUSCULAR VOLUME 90.1 fL (80-100); MEAN PLATELET VOLUME 10.2 fL (9.2-13.0); MONOCYTES 7.6 %; MONOCYTES ABSOLUTE 1.18 10/3/uL (0.21-1.20); NEUTROPHILS 81.7 %; NEUTROPHILS ABSOLUTE 12.72 10/3/uL (2.02-8.40); PLATELET COUNT 257 10/3/uL (150-400); RBC DISTRIBUTION WIDTH 15.1 % (12.0-16.0); RED CELL COUNT 3.22 10/6/uL (4.0-5.6); WHITE BLOOD CELLS 15.6 10/3/uL (4.5-10.5)
[2016-11-29 16:08] LABS: MANUAL DIFF NO %
[2016-11-29] MEDS ORDERED: LEVAQUIN750 MG PO (17:44)
== END 2016-11-29 19:20 | disposition home or self-care (01) ==
LOC: ER 09:40 → CDU1 10:52
PROVIDERS: Internal Medicine; Nurse Practitioner Family
PROC: 0F2BX0Z Change Drainage Device in Hepatobiliary Duct, External Approach (ICD-10-PCS; principal; 2016-11-28)
DX: K91.89 Other postprocedural complications and disorders of digestive system (principal); C79.60 Secondary malignant neoplasm of unspecified ovary; E03.9 Hypothyroidism, unspecified; G62.9 Polyneuropathy, unspecified; K21.9 Gastro-esophageal reflux disease without esophagitis; D72.829 Elevated white blood cell count, unspecified; J90 Pleural effusion, not elsewhere classified; I10 Essential (primary) hypertension; Z85.3 Personal history of malignant neoplasm of breast; Z98.890 Other specified postprocedural states; Z79.899 Other long term (current) drug therapy; Z90.710 Acquired absence of both cervix and uterus
CPT/HCPCS: 47536; 71020; 74176; 80053; 81001; 83690; 85025; 96372; 96374; 96375; 96376; 99152; 99285; A9270-GY; C1729; C1769; C1894; G0378; J1170; J1956; J2250; J2405; J3010; Q9967